=== PATIENT | female | born 2000 | race American Indian/Alaskan Native ===

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

== ENCOUNTER 2019-07-03 20:37 | Emergency (ER) | payer MEDICAID, OTHER ==
[2019-07-03 20:42] VITALS: BP 128/79
--- NOTE | 2019-07-03 21:29 | Emergency Department Report ---
Minor Respiratory - HPI Chief Complaint: Upper Respiratory Infection Stated Complaint: FLU LIKE SYMPTOMS Time Seen by Provider: 07/03/19 21:24 Duration: 1 Day Pain Location: Throat, Other (body aches) Minor Respiratory: Yes Rhinorrhea, Yes Sore Throat, Yes Able to Tolerate Fluids, Yes Cough, Yes Sick Contacts (daughter diagnosed with influenza B), Yes Fever, No Ear Pain, No Hemoptysis, No Chest Pain, No Shortness of Breath Other History: CC: I have the flu. HPI: Debbie is a healthy 19-year-old female who resents 1 day of bodyaches fatigue fever or sore throat cough. Her young daughter was recently diagnosed with influenza B ED Review of Systems ROS: Stated complaint: FLU LIKE SYMPTOMS Other details as noted in HPI Constitutional: chills, fever, malaise ENT: throat pain, congestion Respiratory: cough Gastrointestinal: abdominal pain, nausea, diarrhea Musculoskeletal: back pain Neurological: headache ED Past Medical Hx - Past Medical History Previous Medical History?: No Hx Hypertension: No Hx Diabetes: No Hx Deep Vein Thrombosis: No Hx Renal Disease: No Hx Sickle Cell Disease: No Hx Seizures: No Hx Asthma: No Hx HIV: No - Social History Smoking Status: Never Smoker Substance Use Type: None - Medications Home Medications: Home Medications Medication Instructions Recorded Confirmed Last Taken Type Vit-Fe Fumar-FA [ 1 tab PO QDAY 07/15/17 07/15/17 07/12/17 21: 00 History Vitamin] 1 Naproxen [Naprosyn] 500 mg PO BID #14 tablet 10/11/17 Unknown Rx cephALEXin [Keflex] 500 mg PO Q12HR #14 cap 10/24/17 Unknown Rx Naproxen [Naprosyn] 500 mg PO BID #14 tablet 07/22/18 Unknown Rx medroxyPROGESTERone ACETATE 10 mg PO QDAY #7 tablet 07/22/18 Unknown Rx [Provera] HYDROcodone/APAP 5-325 [Belden 1 each PO Q6HR PRN #10 tablet 08/01/18 Unknown Rx 5/325] Ibuprofen [Motrin 800 MG tab] 800 mg PO Q8HR PRN #15 tablet 07/03/19 Unknown Rx Oseltamivir [Tamiflu] 75 mg PO BID 5 Days #10 cap 07/03/19 Unknown Rx Minor Respiratory Exam - Exam General: Vital signs noted. No distress. Alert and acting appropriately. Nontoxic appearing HEENT: Yes Moist Mucous Membranes, Yes Rhinorrhea, No Pharyngeal Erythema, No Pharyngeal Exudates, No Conjuctival Injection Neck: Yes Supple Lungs: Yes Good Air Exchange, No Wheezes, No Ronchi, No Stridor, No Cough, No Labored Respirations, No Retractions, No Use of Accessory Muscles, No Other Abnormal Lung Sounds Heart: Yes Regular, No Murmur Abdomen: Yes Normal Bowel Sounds, No Tenderness, No Peritoneal Signs Skin: No Rash, No Edema Neurologic: Alert and oriented, no deficits. Musculoskeletal: Unremarkable. ED Course Vital Signs 07/03/19 20:41 Temperature 100.0 F H Pulse Rate 103 H Respiratory 18 Rate Blood Pressure 128/79 O2 Sat by Pulse 98 Oximetry ED Medical Decision Making - Medical Decision Making influenza prescribed Tamiflu ibuprofen Critical care attestation.: If time is entered above; I have spent that time in minutes in the direct care of this critically ill patient, excluding procedure time. ED Disposition Clinical Impression: Influenza Disposition: DC-01 TO HOME OR SELFCARE Is pt being admited?: No Does the pt Need Aspirin: No Condition: Stable Instructions: Influenza (ED) Prescriptions: Ibuprofen [Motrin 800 MG tab] 800 mg PO Q8HR PRN #15 tablet PRN Reason: Pain , Severe (7-10) Oseltamivir [Tamiflu] 75 mg PO BID 5 Days #10 cap Referrals: MARYANA DE SANTIAGO MD [Staff Physician] - as needed Forms: Work/School Release Form(ED)
== END 2019-07-03 22:36 | disposition home or self-care (01) ==
LOC: ED 20:37
DX: J11.1 Influenza due to unidentified influenza virus with other respiratory manifestations (principal); Z79.899 Other long term (current) drug therapy
CPT/HCPCS: 99282